=== PATIENT | female | born 1970 | race Caucasian/White ===

== ENCOUNTER 2019-08-03 21:56 | Emergency (ER) | payer SELFPAY ==
[~2019-08-03] VITALS: Ht 167.6 cm; Wt 165.6 kg
[2019-08-03] MEDS ORDERED: TETANUS/DIPHTHERIA TOX ADULT 0.5 ML SYR IM STA (22:14)
[2019-08-03] MEDS ORDERED: LIDOCAINE 1% 5ML-MPF INJ STA (22:14)
--- NOTE | 2019-08-03 22:19 | Emergency Department Note ---
History of Present Illnes History of Present Illness Chief Complaint: Extremity Trauma/Pain History of Present Illness This is a 48 year old female presents to the ED for laceration of the L foot after she struck it against the open end of a pipe. 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 Any updates have been documented here. Past Medical History Recent Fever: No Clinical Suspicion of Infectio: No New/Unexplained Change in Ment: No Past Medical History: None Past Surgical History: None Social History Smoking Cessation: Never Smoker Alcohol Use: None Any Illegal Drug Use: No Review of Systems Review of Systems Constitutional: no symptoms EENTM: no symptoms Cardiovascular: no symptoms Respiratory: no symptoms Gastrointestinal: no symptoms Genitourinary: no symptoms Musculoskeletal: no symptoms Neurological: no symptoms Psychological: no symptoms Endocrine: no symptoms Hematological/Lymphatic: no symptoms Review of other systems All other systems reviewed and negative. Physical Exam Related Data Allergies: Coded Allergies: No Known Allergies (Unverified , 08/03/19) Triage Vital Signs Vital Signs Date Time Temp Pulse Resp B/P (MAP) Pulse Ox O2 Delivery O2 Flow Rate FiO2 08/03/19 22:18 99.3 92 20 182/95 96 Vital signs reviewed: Yes Physical Exam CONSTITUTIONAL Constitutional: well-developed, well-nourished, morbidly obese HENT HENT: normocephalic, atraumatic, oropharynx clear/moist, nose normal HENT L/R: left ext ear normal, right ext ear normal EYES Eyes: PERRL, conjunctivae normal NECK Neck: ROM normal PULMONARY Pulmonary: effort normal, breath sounds normal CARDIOVASCULAR Cardiovascular: regular rhythm, heart sounds normal, capillary refill normal, normal rate GASTROINTESTINAL Abdominal: soft, nontender, bowel sounds normal GENITOURINARY Genitourinary: exam deferred SKIN Skin: other (laceration medial aspect L foot 4 cm in length. b/l edematous foot) MUSCULOSKELETAL Musculoskeletal: ROM normal NEUROLOGICAL Neurological: alert, oriented x 3, no gross motor or sensory deficits PSYCHOLOGICAL Psychological: mood/affect normal, judgement normal Results Imaging Imaging results reviewed: Yes Impressions [place] [address] Patient Name: AUGUSTA CHAVEZ MR #: [id number] : 1970 Age/Sex: 48/F Req #: [id number] Adm Physician: Ordered by: TOMAS ESCOBAR DO Report #: [id number] Location: ER Room/Bed: Procedure: [id number] DX/FOOT LEFT AP & LAT Exam Date: 08/03/19 Exam Time: 2239 REPORT STATUS: Signed Exam: Left foot radiographs-2 views Clinical History: Medial left foot laceration. Comparison: None. Findings/Impression: No evidence of acute fracture or malalignment. Soft tissue edema in the lower leg, ankle and foot. Plantar calcaneal spur. Mild Achilles enthesopathy. Signed by: Dr. Peg Alonso MD on 08/03/2019 11:27 PM Dictated By: PEG ALONSO MD 26 Transcribed By: WILSON on 08/03/192326 COPY TO: TOMAS ESCOBAR DO~ Procedures Laceration Laceration: Laceration 1 Site: lower extremity Side: left Size (cm): 4 Description: flap Local anesthesia: lidocaine 1% Pre-repair: irrigated extensively Skin layer closed with: nylon Size (cm): 4-0 Number of sutures: 6 Technique: simple, interrupted Assessment & Plan Assessment & Plan Final Impression: (1) Laceration of left foot Assessment & Plan Laceration repaired primarily . Tdap given. Rx Keflex. Plan to discharge to home. Depart Disposition: HOME, SELF-CARE Last Vital Signs Date Time Temp Pulse Resp B/P (MAP) Pulse Ox O2 Delivery O2 Flow Rate FiO2 08/03/19 23:25 88 18 126/86 96 08/03/19 22:18 99.3 Medications in the ED Lidocaine HCl 5 mg ONCE STAT INJ Last administered on 08/03/19at 22:20; Admin Dose 5 MG; Start 08/03/19 at 22:14; Stop 08/03/19 at 22:15; Status DC Tetanus/ Diphtheria Toxoids 0.5 ml ONCE STAT IM Last administered on 08/03/19at 23:15; Admin Dose 0.5 ML; Start 08/03/19 at 22:14; Stop 08/03/19 at 22:15; Status DC TOMAS ESCOBAR DO August 03, 2019 22:15
--- NOTE | 2019-08-03 23:31 | Diagnostic Imaging Report ---
Exam: Left foot radiographs-2 views Clinical History: Medial left foot laceration. Comparison: None. Findings/Impression: No evidence of acute fracture or malalignment. Soft tissue edema in the lower leg, ankle and foot. Plantar calcaneal spur. Mild Achilles enthesopathy. Signed by: Dr. Sia Yanes MD on 08/03/2019 11:27 PM
== END 2019-08-03 23:40 | disposition home or self-care (01) ==
LOC: ER 21:56
DX: S91.312A Laceration without foreign body, left foot, initial encounter (principal); W26.8XXA Contact with other sharp object(s), not elsewhere classified, initial encounter
CPT/HCPCS: 90471; 90714

== ENCOUNTER 2022-07-08 16:23 | Emergency (ER) | payer SELFPAY ==
[~2022-07-08] VITALS: Ht 167.6 cm; Wt 165.6 kg
[2022-07-08] MEDS ORDERED: ONDANSETRON HCL INJ 2MG/ML 2ML 2 MG/ML VIAL IV STA (16:48)
[2022-07-08] MEDS ORDERED: Morphine 4mg INJECTION 4 MG/ML INJ IV STA (16:48)
[2022-07-08] MEDS ORDERED: DILTIAZEM HCL 5 MG/ML 5 ML VIAL IV ONE (17:45)
[2022-07-08] MEDS ORDERED: AMIODARONE HCL 150 MG/100 ML BAG IV ONE (18:00)
[2022-07-08] MEDS ORDERED: AMIODARONE 900MG 500 ML IV SCH (18:00)
[2022-07-08] MEDS ORDERED: AMIODARONE 900MG 500 ML IV ONE (18:05)
[2022-07-08 18:09] LABS: BASOPHILS # (AUTO) 0.1 (0.0-0.1); BASOPHILS % 0.5 % (0.0-1.0); EOSINOPHILS # (AUTO) 0.1 (0.0-0.4); EOSINOPHILS % 0.6 % (0.0-6.0); HEMOGLOBIN 12.3 g/dL (12.0-16.0); LYMPHOCYTES # (AUTO) 2.5 (1.0-3.2); LYMPHOCYTES % 24.3 % (18.0-39.1); MEAN CORPUSCULAR HEMOGLOBIN 23.5 pg (28-32); MEAN CORPUSCULAR HGB CONC 30.8 g/dL (31-35); MEAN CORPUSCULAR VOLUME 76.5 fL (81-99); MONOCYTES # (AUTO) 0.6 (0.2-0.8); MONOCYTES % 5.6 % (4.4-11.3); NEUTROPHILS % 68.6 % (38.7-80.0); PLATELET COUNT 258 x10e3/uL (140-360); RED BLOOD COUNT 5.23 x10e6/uL (3.6-5.1); RED CELL DISTRIBUTION WIDTH 17.4 % (11.7-14.4)
[2022-07-08 18:19] LABS: INR 1.37; PARTIAL THROMBOPLASTIN TIME 30.3 seconds (23.8-35.5); PROTHROMBIN TIME 17.4 seconds (11.9-14.5)
[2022-07-08] MEDS ORDERED: ENOXAPARIN SODIUM INJ 100 MG/ML SYR SC ONE (18:21)
[2022-07-08] MEDS ORDERED: ENOXAPARIN SODIUM INJ 100 MG/ML SYR SC STA (18:26)
[2022-07-08 18:29] LABS: ALANINE AMINOTRANSFERASE 30 IU/L (0-55); ALBUMIN 3.8 g/dL (3.5-5.0); ALBUMIN/GLOBULIN RATIO 1.2 (0.8-2.0); ALKALINE PHOSPHATASE 76 IU/L (40-150); ANION GAP 20.4 mmol/L (8-16); BLOOD UREA NITROGEN 19 mg/dL (7-26); BUN/CREATININE RATIO 17 (6-25); CALCIUM 9.3 mg/dL (8.4-10.2); CARBON DIOXIDE 20 mmol/L (22-29); CHLORIDE 105 mmol/L (98-107); CREATINE KINASE 30 IU/L (29-168); GLUCOSE 119 mg/dL (74-118); POTASSIUM 3.4 mmol/L (3.5-5.1); SODIUM 142 mmol/L (136-145)
[2022-07-08] MEDS ORDERED: SODIUM CHLORIDE 0.9% 1000ML 1,000 ML IV ONE ×2 (18:30)
[2022-07-08] MEDS ORDERED: Vancomycin IV 1 GM in SODIUM CHLORIDE 0.9% 250ML 250 ML IV SCH (18:30)
== END 2022-07-08 22:53 | disposition other institution (70) ==
LOC: ER 16:33
DX: R11.2 Nausea with vomiting, unspecified (principal); A41.9 Sepsis, unspecified organism; L03.116 Cellulitis of left lower limb; L03.115 Cellulitis of right lower limb; S81.802A Unspecified open wound, left lower leg, initial encounter; S81.801A Unspecified open wound, right lower leg, initial encounter; I48.20 Chronic atrial fibrillation, unspecified; Z20.822 Contact with and (suspected) exposure to COVID-19
CPT/HCPCS: 0223U; 36415; 71045; 80053; 82550; 82553; 83605; 83880; 84484; 85025; 85610; 85730; 87040; 87071; 87186; 87205; 93005; 99285; J1650; J2270; J2405; J2543; J3370; J7030; J7050

== ENCOUNTER 2024-01-10 09:52 | Inpatient (IN) | payer OTHER ==
[~2024-01-10] VITALS: Ht 167.6 cm; Wt 165.6 kg
[~2024-01-10 09:52] MED LIST: AMIODARONE HCL200 MG PO; ASPIRIN325 MG PO; CEPHALEXIN500 MG PO; CIPRO500 MG PO; CLEOCIN HCL300 MG PO; DIGOXIN125 MCG PO; FUROSEMIDE40 MG PO; LOSARTAN POTASS25 MG PO; METFORMIN HCL500 MG PO; METOPROLOL TAR100 MG PO
[2024-01-10] MEDS: Vancomycin IV 1 GM in SODIUM CHLORIDE 0.9% 250ML 250 ML IV ONE (10:51)
[2024-01-10] MEDS: DILTIAZEM HCL 5 MG/ML 5 ML VIAL IV ONE ×2 (10:52→12:47)
[2024-01-10] MEDS: SODIUM CHLORIDE 0.9% 1000ML 1,000 ML IV SCH ×2 (10:52→13:47)
[2024-01-10] MEDS: Morphine 4mg INJECTION 4 MG/ML INJ IV ONE (11:05)
[2024-01-10 11:14] LABS: BASOPHILS # (AUTO) 0.1 (0.0-0.1); BASOPHILS % 0.7 % (0.0-1.0); EOSINOPHILS # (AUTO) 0.2 (0.0-0.4); EOSINOPHILS % 2.3 % (0.0-6.0); HEMOGLOBIN 11.6 g/dL (12.0-16.0); LYMPHOCYTES # (AUTO) 2.1 (1.0-3.2); LYMPHOCYTES % 28.4 % (18.0-39.1); MEAN CORPUSCULAR HEMOGLOBIN 25.3 pg (28-32); MEAN CORPUSCULAR HGB CONC 30.5 g/dL (31-35); MEAN CORPUSCULAR VOLUME 82.8 fL (81-99); MONOCYTES # (AUTO) 0.4 (0.2-0.8); MONOCYTES % 5.7 % (4.4-11.3); NEUTROPHILS # (AUTO) 4.6 (2.1-6.9); NEUTROPHILS % 62.5 % (38.7-80.0); PLATELET COUNT 209 x10e3/uL (140-360); RED BLOOD COUNT 4.59 x10e6/uL (3.6-5.1); RED CELL DISTRIBUTION WIDTH 15.5 % (11.7-14.4); WHITE BLOOD COUNT 7.37 x10e3/uL (4.8-10.8)
[2024-01-10 11:26] LABS: ALBUMIN 3.5 g/dL (3.5-5.0); ALBUMIN/GLOBULIN RATIO 0.9 (0.8-2.0); BILIRUBIN,TOTAL 0.4 mg/dL (0.2-1.2); CALCIUM 8.8 mg/dL (8.4-10.2); TOTAL PROTEIN 7.3 g/dL (6.5-8.1)
[2024-01-10] MEDS ORDERED: IOPAMIDOL 370 MG/ML 100 ML INFUS..BTL INJ ONE (11:57)
[2024-01-10] MEDS ORDERED: ACETAMINOPHEN 325 MG TAB PO PRN (12:00)
[2024-01-10] MEDS ORDERED: ONDANSETRON HCL INJ 2MG/ML 2ML 2 MG/ML VIAL IV PRN ×2 (12:00)
[2024-01-10] MEDS: AMIODARONE HCL 200 MG TAB PO SCH (13:44)
[2024-01-10] MEDS: DIGOXIN 0.125 MG TAB PO SCH (13:44)
[2024-01-10] MEDS: METOPROLOL TARTRATE INJ 1 MG/ML VIAL IV ONE (13:46)
[2024-01-10 14:51] VITALS: PULSE 137; RESP 22; TEMP 98.6
[2024-01-10 15:22] VITALS: BP 125/90; PULSE 141; RESP 20; TEMP 98.4; O2SAT 100
[2024-01-10 15:30] VITALS: BP 125/90; PULSE 141; RESP 20; TEMP 98.4; O2SAT 100
[2024-01-10] MEDS: Morphine 4mg INJECTION 4 MG/ML INJ IV PRN (15:31)
[2024-01-10] MEDS: METOPROLOL TARTRATE 25 MG TAB PO SCH (16:22)
[2024-01-10] MEDS: CEFEPIME 2 GM in SODIUM CHLORIDE 0.9% 100 ML IV SCH (16:22)
[2024-01-10] MEDS: ENOXAPARIN SOD INJ 40 MG/0.4 ML SYR SC SCH (16:25)
[2024-01-10] MEDS ORDERED: METOPROLOL TARTRATE 50 MG TAB PO SCH (17:00)
[2024-01-10] MEDS: Vancomycin IV 1.5 GM in SODIUM CHLORIDE 0.9% 500ML 500 ML IV ONE (20:40)
[2024-01-10] MEDS: ENOXAPARIN SOD INJ 60 MG/0.6 ML SYR SC ONE (20:41)
[2024-01-10 20:50] VITALS: BP 126/85; PULSE 132; RESP 20; TEMP 98.5; O2SAT 98
[2024-01-10] MEDS ORDERED: VANCOMYCIN 1.5 GM/300 ML (PEG) 300 ML IV SCH (21:00)
[2024-01-10 21:44] VITALS: BP 126/85; PULSE 132; RESP 20; TEMP 98.5; O2SAT 98
[2024-01-10 21:45] VITALS: BP 126/85; PULSE 132; RESP 20; TEMP 98.5; O2SAT 98
[2024-01-11] VITALS (7 sets, daily range): BP systolic 105–138; BP diastolic 60–94; PULSE 66–132; RESP 18–20; TEMP 97.5–99.9; O2SAT 96–100
[2024-01-11] MEDS: METOPROLOL TARTRATE 50 MG TAB PO SCH (08:13)
[2024-01-11] MEDS: ASPIRIN 325 MG TAB PO SCH (08:14)
[2024-01-11] MEDS: FUROSEMIDE 40 MG TAB PO SCH (08:15)
[2024-01-11] MEDS: LOSARTAN POTASSIUM 25 MG TAB PO SCH (08:15)
[2024-01-11] MEDS: ENOXAPARIN SODIUM INJ 100 MG/ML SYR SC SCH (08:15)
[2024-01-11] MEDS: VANCOMYCIN 1.5 GM/300 ML (PEG) 300 ML IV SCH (08:16)
[2024-01-11 08:28] LABS: ANION GAP 11.9 mmol/L (8-16); CALCIUM 8.5 mg/dL (8.4-10.2); CREATININE, SERUM 0.83 mg/dL (0.57-1.11); POTASSIUM 3.9 mmol/L (3.5-5.1)
[2024-01-11 08:31] LABS: BASOPHILS # (AUTO) 0.1 (0.0-0.1); BASOPHILS % 0.6 % (0.0-1.0); EOSINOPHILS # (AUTO) 0.2 (0.0-0.4); EOSINOPHILS % 1.7 % (0.0-6.0); HEMATOCRIT 36.2 % (34.2-44.1); HEMOGLOBIN 10.8 g/dL (12.0-16.0); LYMPHOCYTES # (AUTO) 1.8 (1.0-3.2); LYMPHOCYTES % 20.1 % (18.0-39.1); MEAN CORPUSCULAR HEMOGLOBIN 25.6 pg (28-32); MEAN CORPUSCULAR HGB CONC 29.8 g/dL (31-35); MEAN CORPUSCULAR VOLUME 85.8 fL (81-99); MONOCYTES # (AUTO) 0.4 (0.2-0.8); MONOCYTES % 4.9 % (4.4-11.3); NEUTROPHILS # (AUTO) 6.3 (2.1-6.9); NEUTROPHILS % 72.5 % (38.7-80.0); PLATELET COUNT 183 x10e3/uL (140-360); RED BLOOD COUNT 4.22 x10e6/uL (3.6-5.1); RED CELL DISTRIBUTION WIDTH 16.1 % (11.7-14.4); WHITE BLOOD COUNT 8.69 x10e3/uL (4.8-10.8)
[2024-01-12] VITALS: BP 130/80; PULSE 60; RESP 18; TEMP 98; O2SAT 100
[2024-01-12 00:57] VITALS: BP 130/80; PULSE 60; RESP 18; TEMP 98; O2SAT 100
[2024-01-12 04:00] VITALS: BP 123/74; PULSE 70; RESP 20; TEMP 98.5; O2SAT 100
[2024-01-12 07:29] VITALS: BP 135/74; PULSE 72; RESP 19; TEMP 98.2; O2SAT 100
[2024-01-12 07:57] VITALS: BP 135/74; PULSE 72; RESP 19; TEMP 98.2; O2SAT 100
[2024-01-12 11:03] VITALS: BP 115/59; PULSE 70; RESP 18; TEMP 97.7; O2SAT 100
[2024-01-12] MEDS ORDERED: DIGOXIN125 MCG PO (11:04)
[2024-01-12] MEDS ORDERED: METFORMIN HCL500 MG PO (11:04)
[2024-01-12] MEDS ORDERED: METOPROLOL TART50 MG PO (11:04)
[2024-01-12] MEDS ORDERED: LOSARTAN POTASS25 MG PO (11:04)
[2024-01-12] MEDS ORDERED: FUROSEMIDE40 MG PO (11:04)
[2024-01-12] MEDS ORDERED: ELIQUIS5 MG PO (11:04)
[2024-01-12] MEDS ORDERED: CIPRO250 MG PO (11:06)
[2024-01-12] MEDS ORDERED: AMIODARONE HCL200 MG PO (11:11)
== END 2024-01-12 12:40 | disposition home or self-care (01) | DRG 603 ==
LOC: ER 09:59 → ERHOLD 11:59 → MED/SURG3 15:08
PROVIDERS: ADMIT Internal Medicine; ATTEND Internal Medicine
DX: L03.116 Cellulitis of left lower limb (principal); E66.2 Morbid (severe) obesity with alveolar hypoventilation; Z68.43 Body mass index [BMI] 50.0-59.9, adult; I48.92 Unspecified atrial flutter; I83.228 Varicose veins of left lower extremity with both ulcer of other part of lower extremity and inflammation; R73.03 Prediabetes; I10 Essential (primary) hypertension; B96.5 Pseudomonas (aeruginosa) (mallei) (pseudomallei) as the cause of diseases classified elsewhere; B95.1 Streptococcus, group B, as the cause of diseases classified elsewhere; Z79.82 Long term (current) use of aspirin; Z79.84 Long term (current) use of oral hypoglycemic drugs; Z91.141 Patient's other noncompliance with medication regimen due to financial hardship
CPT/HCPCS: 36415; 80048; 80053; 80202; 83605; 85025; 87040; 87071; 87186; 87205; 93005; 99252; 99284; J0692; J1650; J2270; J2543; J7030; J7040; J7050; Q9967

== ENCOUNTER 2024-06-18 11:41 | Inpatient (IN) | payer OTHER ==
[2024-06-18] VITALS (7 sets, daily range): BP systolic 124–153; BP diastolic 53–68; PULSE 80–87; RESP 18–20; TEMP 98.6–98.9; O2SAT 94–99
[~2024-06-18] VITALS: Ht 167.6 cm; Wt 181.4 kg
[~2024-06-18 11:41] MED LIST changes: +CIPRO250 MG PO; +ELIQUIS5 MG PO; +METOPROLOL TART50 MG PO
[2024-06-18] MEDS: Morphine 4mg INJECTION 4 MG/ML INJ IV ONE (12:48)
[2024-06-18] MEDS: PIPERACILLIN/TAZOBACTAM 4.5 GM in SODIUM CHLORIDE 0.9% 100 ML IV ONE (12:49)
[2024-06-18] MEDS: SODIUM CHLORIDE 0.9% 1000ML 1,000 ML IV SCH (12:54)
[2024-06-18 12:57] LABS: BASOPHILS # (AUTO) 0.1 (0.0-0.1); BASOPHILS % 0.8 % (0.0-1.0); EOSINOPHILS # (AUTO) 0.6 (0.0-0.4); EOSINOPHILS % 6.1 % (0.0-6.0); HEMATOCRIT 35.3 % (34.2-44.1); HEMOGLOBIN 11.3 g/dL (12.0-16.0); LYMPHOCYTES # (AUTO) 2.3 (1.0-3.2); LYMPHOCYTES % 21.8 % (18.0-39.1); MEAN CORPUSCULAR HEMOGLOBIN 26.2 pg (28-32); MEAN CORPUSCULAR VOLUME 81.7 fL (81-99); MONOCYTES # (AUTO) 0.5 (0.2-0.8); NEUTROPHILS # (AUTO) 6.8 (2.1-6.9); NEUTROPHILS % 65.2 % (38.7-80.0); PLATELET COUNT 263 x10e3/uL (140-360); RED BLOOD COUNT 4.32 x10e6/uL (3.6-5.1); RED CELL DISTRIBUTION WIDTH 14.4 % (11.7-14.4); WHITE BLOOD COUNT 10.39 x10e3/uL (4.8-10.8)
[2024-06-18 13:19] LABS: ALBUMIN 3.3 g/dL (3.5-5.0); ALBUMIN/GLOBULIN RATIO 0.9 (0.8-2.0); ANION GAP 14.5 mmol/L (8-16); BILIRUBIN,TOTAL 0.4 mg/dL (0.2-1.2); CALCIUM 8.9 mg/dL (8.4-10.2); CREATININE, SERUM 1.06 mg/dL (0.57-1.11); POTASSIUM 3.5 mmol/L (3.5-5.1)
[2024-06-18] MEDS: Vancomycin IV 1 GM in SODIUM CHLORIDE 0.9% 250ML 250 ML IV ONE (14:06)
[2024-06-18] MEDS ORDERED: ALBUTEROL/IPRATROPIUM 3 ML NEB NEB PRN (14:45)
[2024-06-18] MEDS ORDERED: DIPHENHYDRAMINE HCL 25 MG CAP PO PRN (14:45)
[2024-06-18] MEDS ORDERED: SIMETHICONE 80 MG CHEW PO PRN (14:45)
[2024-06-18] MEDS ORDERED: DEXTROSE 50% SYRINGE 50 ML IV PRN (14:45)
[2024-06-18] MEDS ORDERED: HYDRALAZINE HCL 20 MG/ML VIAL IV PRN (14:45)
[2024-06-18] MEDS ORDERED: IOPAMIDOL 370 MG/ML 100 ML INFUS..BTL INJ ONE (15:00)
[2024-06-18] MEDS: Morphine 4mg INJECTION 4 MG/ML INJ IV PRN (15:14)
[2024-06-18] MEDS: CLINDAMYCIN PHOS 900MG/ 50ML 50 ML IV ONE (16:59)
[2024-06-18] MEDS: HYDROCODONE/APAP 5MG-325MG TAB PO PRN (16:59)
[2024-06-18] MEDS: CEFEPIME 2 GM in SODIUM CHLORIDE 0.9% 100 ML IV SCH (17:00)
[2024-06-18] MEDS: SODIUM CHLORIDE 0.9% 250ML 250 ML ONE (17:01)
[2024-06-18] MEDS ORDERED: ATORVASTATIN CA20 MG PO (17:14)
[2024-06-18] MEDS ORDERED: GABAPENTIN300 MG PO (17:14)
[2024-06-18] MEDS: ENOXAPARIN SOD INJ 40 MG/0.4 ML SYR SC SCH (17:50)
[2024-06-19] VITALS (11 sets, daily range): BP systolic 103–139; BP diastolic 52–73; PULSE 66–121; RESP 18–20; TEMP 98–98.5; O2SAT 96–100
[2024-06-19] MEDS ORDERED: VANCOMYCIN HCL 1.25 GM in SODIUM CHLORIDE 0.9% 250ML 250 ML IV SCH (02:00)
[2024-06-19 05:49] LABS: BASOPHILS # (AUTO) 0.1 (0.0-0.1); BASOPHILS % 0.4 % (0.0-1.0); EOSINOPHILS # (AUTO) 0.5 (0.0-0.4); EOSINOPHILS % 3.6 % (0.0-6.0); HEMOGLOBIN 10.5 g/dL (12.0-16.0); LYMPHOCYTES # (AUTO) 1.7 (1.0-3.2); LYMPHOCYTES % 12.4 % (18.0-39.1); MEAN CORPUSCULAR HGB CONC 31.8 g/dL (31-35); MEAN CORPUSCULAR VOLUME 81.7 fL (81-99); MONOCYTES # (AUTO) 0.5 (0.2-0.8); MONOCYTES % 3.7 % (4.4-11.3); NEUTROPHILS # (AUTO) 10.9 (2.1-6.9); NEUTROPHILS % 79.4 % (38.7-80.0); PLATELET COUNT 261 x10e3/uL (140-360); RED BLOOD COUNT 4.04 x10e6/uL (3.6-5.1); RED CELL DISTRIBUTION WIDTH 14.6 % (11.7-14.4); WHITE BLOOD COUNT 13.67 x10e3/uL (4.8-10.8)
[2024-06-19 06:15] LABS: ANION GAP 15.4 mmol/L (8-16); CALCIUM 8.1 mg/dL (8.4-10.2); CREATININE, SERUM 0.95 mg/dL (0.57-1.11)
[2024-06-19 06:17] LABS: CHOL/HDL RATIO 4.2 (3.0-3.6); MAGNESIUM 1.8 MG/DL (1.3-2.1)
[2024-06-19 06:21] LABS: POTASSIUM 3.4 mmol/L (3.5-5.1)
[2024-06-19] MEDS: DIGOXIN 0.125 MG TAB PO SCH (06:23)
[2024-06-19] MEDS: AMIODARONE HCL 200 MG TAB PO SCH (06:24)
[2024-06-19] MEDS: METOPROLOL TARTRATE 50 MG TAB PO SCH (06:24)
[2024-06-19] MEDS ORDERED: DIGOXIN 0.125 MG TAB PO SCH (06:30)
[2024-06-19] MEDS ORDERED: METOPROLOL TARTRATE 50 MG TAB PO SCH (06:30)
[2024-06-19] MEDS ORDERED: AMIODARONE HCL 200 MG TAB PO SCH (06:30)
[2024-06-19 06:32] LABS: THYROID STIMULATING HORMONE 0.687 uIU/mL (0.350-4.940)
[2024-06-19] MEDS: PANTOPRAZOLE SOD 40 MG TABEC PO SCH (09:59)
[2024-06-19] MEDS: MUPIROCIN 2% OINT 22 GM TUBE TOP SCH (12:09)
[2024-06-19] MEDS: ONDANSETRON HCL INJ 2MG/ML 2ML 2 MG/ML VIAL IV PRN (14:43)
[2024-06-19] MEDS: FUROSEMIDE INJ 10 MG/ML 4 ML VIAL IV SCH (16:30)
[2024-06-19] MEDS: KETOROLAC TROMETHAMINE 30 MG/ML VIAL IV SCH (16:39)
[2024-06-19] MEDS: Vancomycin IV 1.25 GM in SODIUM CHLORIDE 0.9% 250ML 250 ML IV SCH (19:18)
[2024-06-20] VITALS (10 sets, daily range): BP systolic 119–142; BP diastolic 56–73; PULSE 62–77; RESP 16–21; TEMP 97.1–98.6; O2SAT 95–99
[2024-06-20] MEDS: ACETAMINOPHEN 325 MG TAB PO PRN (04:19)
[2024-06-20] MEDS: VANCOMYCIN HCL 1.25 GM in SODIUM CHLORIDE 0.9% 250ML 250 ML IV SCH (05:28)
[2024-06-20 06:19] LABS: BASOPHILS # (AUTO) 0.1 (0.0-0.1); BASOPHILS % 0.6 % (0.0-1.0); EOSINOPHILS # (AUTO) 0.5 (0.0-0.4); EOSINOPHILS % 6.7 % (0.0-6.0); HEMATOCRIT 33.3 % (34.2-44.1); HEMOGLOBIN 10.4 g/dL (12.0-16.0); LYMPHOCYTES # (AUTO) 1.5 (1.0-3.2); MEAN CORPUSCULAR HEMOGLOBIN 25.9 pg (28-32); MEAN CORPUSCULAR HGB CONC 31.2 g/dL (31-35); MEAN CORPUSCULAR VOLUME 82.8 fL (81-99); MONOCYTES # (AUTO) 0.4 (0.2-0.8); NEUTROPHILS # (AUTO) 5.3 (2.1-6.9); NEUTROPHILS % 67.9 % (38.7-80.0); PLATELET COUNT 231 x10e3/uL (140-360); RED BLOOD COUNT 4.02 x10e6/uL (3.6-5.1); RED CELL DISTRIBUTION WIDTH 14.6 % (11.7-14.4); WHITE BLOOD COUNT 7.74 x10e3/uL (4.8-10.8)
[2024-06-20 06:49] LABS: ANION GAP 15.3 mmol/L (8-16); CALCIUM 8.3 mg/dL (8.4-10.2); CREATININE, SERUM 0.9 mg/dL (0.57-1.11)
[2024-06-20 06:54] LABS: POTASSIUM 3.3 mmol/L (3.5-5.1)
[2024-06-20] MEDS: AMIODARONE HCL 200 MG TAB PO SCH (08:56)
[2024-06-20] MEDS: ATORVASTATIN 20 MG TAB PO SCH (08:57)
[2024-06-20] MEDS: MELATONIN 5 MG TABLET PO PRN (22:36)
[2024-06-21] VITALS (9 sets, daily range): BP systolic 103–147; BP diastolic 53–75; PULSE 53–78; RESP 18–20; TEMP 97.7–98.4; O2SAT 95–100
[2024-06-21 05:37] LABS: BASOPHILS # (AUTO) 0.1 (0.0-0.1); BASOPHILS % 0.8 % (0.0-1.0); EOSINOPHILS # (AUTO) 0.5 (0.0-0.4); EOSINOPHILS % 7.5 % (0.0-6.0); HEMATOCRIT 30.4 % (34.2-44.1); HEMOGLOBIN 9.6 g/dL (12.0-16.0); LYMPHOCYTES # (AUTO) 1.5 (1.0-3.2); LYMPHOCYTES % 23.8 % (18.0-39.1); MEAN CORPUSCULAR HEMOGLOBIN 25.9 pg (28-32); MEAN CORPUSCULAR HGB CONC 31.6 g/dL (31-35); MEAN CORPUSCULAR VOLUME 82.2 fL (81-99); MONOCYTES # (AUTO) 0.4 (0.2-0.8); MONOCYTES % 5.9 % (4.4-11.3); NEUTROPHILS # (AUTO) 3.8 (2.1-6.9); NEUTROPHILS % 61.4 % (38.7-80.0); PLATELET COUNT 219 x10e3/uL (140-360); RED CELL DISTRIBUTION WIDTH 14.6 % (11.7-14.4); WHITE BLOOD COUNT 6.23 x10e3/uL (4.8-10.8)
[2024-06-21 06:06] LABS: ANION GAP 14.2 mmol/L (8-16); CALCIUM 8.5 mg/dL (8.4-10.2); CREATININE, SERUM 0.82 mg/dL (0.57-1.11)
[2024-06-21 06:07] LABS: POTASSIUM 3.2 mmol/L (3.5-5.1)
[2024-06-21] MEDS: POTASSIUM CHLORIDE 20 MEQ TAB CR PO PRN (10:14)
[2024-06-21] MEDS: NYSTATIN 15 GM POWDER UD BTL TOP PRN (10:28)
[2024-06-21] MEDS: APIXABAN 5 MG TABLET PO SCH (17:20)
[2024-06-22] VITALS (10 sets, daily range): BP systolic 120–143; BP diastolic 56–77; PULSE 54–76; RESP 18–20; TEMP 97.9–98.3; O2SAT 96–100
[2024-06-22] MEDS: VANCOMYCIN HCL 1.25 GM in SODIUM CHLORIDE 0.9% 250ML 250 ML IV SCH (05:26)
[2024-06-23] VITALS (12 sets, daily range): BP systolic 112–155; BP diastolic 57–86; PULSE 53–72; RESP 17–20; TEMP 97.7–98.2; O2SAT 97–100
[2024-06-23] MEDS: DOCUSATE SODIUM 100 MG CAP PO PRN (10:37)
[2024-06-24] VITALS (10 sets, daily range): BP systolic 121–153; BP diastolic 55–80; PULSE 48–67; RESP 18–20; TEMP 97.7–98.3; O2SAT 96–100
[2024-06-24] MEDS: ALTEPLASE RECOMBINANT 2 MG/2 ML VIAL IV PRN (04:08)
[2024-06-25] VITALS (11 sets, daily range): BP systolic 108–145; BP diastolic 49–67; PULSE 56–65; RESP 16–20; TEMP 97.7–98.6; O2SAT 97–100
[2024-06-25] MEDS: BENZONATATE 100 MG CAP PO PRN (00:54)
[2024-06-25] MEDS: METOPROLOL TARTRATE 25 MG TAB PO SCH (16:04)
[2024-06-25] MEDS: Morphine 4mg INJECTION 4 MG/ML INJ IV PRN (16:52)
[2024-06-26] VITALS (9 sets, daily range): BP systolic 118–157; BP diastolic 65–78; PULSE 60–72; RESP 18–20; TEMP 97.7–98.1; O2SAT 96–99
[2024-06-26] MEDS: HYDROMORPHONE 1MG/1ML INJ IV PRN (16:26)
[2024-06-27] VITALS (8 sets, daily range): BP systolic 106–161; BP diastolic 56–88; PULSE 60–73; RESP 18–20; TEMP 97.6–98.1; O2SAT 97–100
[2024-06-27] MEDS: HYDROCODONE/APAP 10MG-325MG TAB PO PRN (13:44)
== END 2024-06-27 18:30 | disposition home health service (06) | DRG 603 ==
LOC: ER 11:44 → ERHOLD 14:31 → MED/SURG3 15:30
PROVIDERS: ADMIT Internal Medicine; ATTEND Internal Medicine
PROC: 02HV33Z Insertion of Infusion Device into Superior Vena Cava, Percutaneous Approach (ICD-10-PCS; principal; 2024-06-19)
PROC: B548ZZA Ultrasonography of Superior Vena Cava, Guidance (ICD-10-PCS; 2024-06-19)
DX: L03.116 Cellulitis of left lower limb (principal); Z68.44 Body mass index [BMI] 60.0-69.9, adult; L97.829 Non-pressure chronic ulcer of other part of left lower leg with unspecified severity; L97.819 Non-pressure chronic ulcer of other part of right lower leg with unspecified severity; I96 Gangrene, not elsewhere classified; I50.32 Chronic diastolic (congestive) heart failure; I89.0 Lymphedema, not elsewhere classified; E66.01 Morbid (severe) obesity due to excess calories; I87.2 Venous insufficiency (chronic) (peripheral); I11.0 Hypertensive heart disease with heart failure; I50.812 Chronic right heart failure; I48.0 Paroxysmal atrial fibrillation; Z79.01 Long term (current) use of anticoagulants; K21.9 Gastro-esophageal reflux disease without esophagitis; E78.5 Hyperlipidemia, unspecified; Z71.3 Dietary counseling and surveillance; Z71.82 Exercise counseling; Z79.899 Other long term (current) drug therapy
CPT/HCPCS: 36415; 36569; 71045; 73701; 80048; 80053; 80061; 80202; 82948; 83036; 83605; 83735; 84443; 85025; 87040; 93306; 93970; 94799; 99252; 99284; J0692; J1171; J1650; J1885; J1938; J2270; J2405; J2470; J2543; J2997; J7030; J7050; Q9967

== ENCOUNTER 2024-09-25 16:53 | Inpatient (IN) | payer OTHER ==
[~2024-09-25] VITALS: Ht 167.6 cm; Wt 158.3 kg
[~2024-09-25 16:53] MED LIST changes: +ATORVASTATIN CA20 MG PO; +GABAPENTIN300 MG PO
[2024-09-25 21:26] LABS: BASOPHILS % 0.4 % (0.0-1.0); EOSINOPHILS % 0.8 % (0.0-6.0); LYMPHOCYTES % 21.0 % (18.0-39.1); MONOCYTES % 3.9 % (4.4-11.3); NEUTROPHILS % 73.5 % (38.7-80.0); RED CELL DISTRIBUTION WIDTH 15.4 % (11.7-14.4)
[2024-09-25] MEDS: ONDANSETRON HCL INJ 2MG/ML 2ML 2 MG/ML VIAL IV STA (21:26)
[2024-09-25] MEDS: HYDROMORPHONE 1MG/1ML INJ IV STA (21:27)
[2024-09-25 21:46] LABS: EST GLOMERULAR FILTRATION RATE 66.0 ML/MIN (>=60)
[2024-09-25] MEDS ORDERED: SODIUM CHLORIDE FLUSH 10 ML SYR INJ PRN (22:15)
[2024-09-25] MEDS: Vancomycin IV 1.25 GM in SODIUM CHLORIDE 0.9% 250ML 250 ML IV SCH (22:52)
[2024-09-25 23:06] VITALS: PULSE 75; RESP 18; O2SAT 97
[2024-09-25 23:39] VITALS: PULSE 68; RESP 20; TEMP 98.4
[2024-09-26] VITALS (12 sets, daily range): BP systolic 110–133; BP diastolic 58–86; PULSE 60–89; RESP 16–20; TEMP 97.8–98.6; O2SAT 98–100
[2024-09-26] MEDS ORDERED: LOPRESSOR25 MG PO (02:35)
[2024-09-26] MEDS ORDERED: BUPRENORPHINE1 EAC3 TD (02:35)
[2024-09-26] MEDS ORDERED: OXYCODONE-ACET1 EAC3 PO (02:35)
[2024-09-26] MEDS ORDERED: ELIQUIS5 MG PO (02:35)
[2024-09-26] MEDS: HYDROMORPHONE 1MG/1ML INJ IV PRN (07:28)
[2024-09-26 07:42] LABS: BASOPHILS % 0.4 % (0.0-1.0); EOSINOPHILS % 0.9 % (0.0-6.0); LYMPHOCYTES % 20.8 % (18.0-39.1); MONOCYTES % 5.8 % (4.4-11.3); NEUTROPHILS % 71.7 % (38.7-80.0); RED CELL DISTRIBUTION WIDTH 15.5 % (11.7-14.4)
[2024-09-26 08:13] LABS: EST GLOMERULAR FILTRATION RATE 80.0 ML/MIN (>=60)
[2024-09-26] MEDS: VANCOMYCIN 1.25GM/250 ML (PEG) 250 ML IV SCH (10:15)
[2024-09-26] MEDS ORDERED: TYLENOL EXTRA500 MG PO (10:21)
[2024-09-26] MEDS ORDERED: IBUPROFEN800 MG PO (10:21)
[2024-09-26] MEDS: ONDANSETRON HCL INJ 2MG/ML 2ML 2 MG/ML VIAL IV PRN (13:05)
[2024-09-26] MEDS: AMIODARONE HCL 200 MG TAB PO SCH (15:34)
[2024-09-26] MEDS: GABAPENTIN 300 MG CAP PO SCH (15:34)
[2024-09-26] MEDS: METOPROLOL TARTRATE INJ 1 MG/ML VIAL IV ONE (15:36)
[2024-09-26] MEDS: APIXABAN 5 MG TABLET PO SCH (17:24)
[2024-09-26] MEDS: METOPROLOL TARTRATE 25 MG TAB PO SCH (17:25)
[2024-09-27 03:24] VITALS: BP 127/63; PULSE 64; RESP 20; TEMP 98.5; O2SAT 99
[2024-09-27] MEDS: CEFTRIAXONE 2 GM in SODIUM CHLORIDE 0.9% 100 ML IV SCH (07:44)
[2024-09-27] MEDS: ATORVASTATIN 20 MG TAB PO SCH (07:44)
[2024-09-27 09:20] VITALS: BP 129/59; PULSE 56; RESP 20; TEMP 98.1; O2SAT 99
[2024-09-27] MEDS: ACETAMINOPHEN 325 MG TAB PO PRN (09:49)
[2024-09-27] MEDS: LOSARTAN POTASSIUM 25 MG TAB PO SCH (09:50)
[2024-09-27] MEDS: FUROSEMIDE 40 MG TAB PO SCH (09:57)
[2024-09-27 10:01] VITALS: BP 129/59; PULSE 60; RESP 20; TEMP 98.1; O2SAT 99
[2024-09-27] MEDS ORDERED: OXYCODONE HCL 10 MG TAB CR PO PRN (12:45)
[2024-09-27] MEDS: OXYCODONE HCL IR 5 MG TAB PO PRN (13:30)
[2024-09-27 14:18] VITALS: BP 130/78; PULSE 61; RESP 20; TEMP 98.1; O2SAT 100
[2024-09-27] MEDS: HYDROMORPHONE 1MG/1ML INJ IV PRN (14:48)
[2024-09-27 19:38] VITALS: BP 107/71; PULSE 55; RESP 18; TEMP 97.4; O2SAT 99
[2024-09-27 23:24] VITALS: BP 116/74; PULSE 58; RESP 18; TEMP 97.6; O2SAT 98
[2024-09-28 03:24] VITALS: BP 114/71; PULSE 55; RESP 18; TEMP 97.4; O2SAT 100
[2024-09-28 08:24] VITALS: BP 128/79; PULSE 56; RESP 20; TEMP 97.7; O2SAT 96
[2024-09-28] MEDS: METOPROLOL TARTRATE INJ 1 MG/ML VIAL IV PRN (09:33)
[2024-09-28 10:01] VITALS: BP 128/79; PULSE 160; RESP 20; TEMP 97.7; O2SAT 96
[2024-09-28 14:09] VITALS: BP 133/82; PULSE 74; RESP 20; TEMP 97.9; O2SAT 98
[2024-09-28 16:59] VITALS: BP 111/72; PULSE 62; RESP 20; TEMP 98.1; O2SAT 100
[2024-09-28] MEDS: LORAZEPAM 0.5 MG TAB PO PRN (17:31)
[2024-09-28 20:00] VITALS: BP 109/73; PULSE 58; RESP 17; TEMP 98.1; O2SAT 100
[2024-09-29] VITALS (9 sets, daily range): BP systolic 80–150; BP diastolic 50–75; PULSE 54–79; RESP 17–18; TEMP 97.6–98.5; O2SAT 96–100
[2024-09-29] MEDS: SODIUM CHLORIDE 0.9% 1000ML 1,000 ML IV ONE (21:03)
[2024-09-29] MEDS: MIDODRINE 2.5 MG TAB PO SCH (23:40)
[2024-09-30] VITALS (7 sets, daily range): BP systolic 99–136; BP diastolic 51–74; PULSE 51–64; RESP 17–18; TEMP 97.7–98.6; O2SAT 93–100
[2024-09-30] MEDS: FUROSEMIDE INJ 10 MG/ML 4 ML VIAL IV ONE (15:08)
[2024-09-30] MEDS: SILVER ANTIMICROBIAL WOUND GEL 45ML TP SCH (16:23)
[2024-09-30] MEDS ORDERED: MIDODRINE 2.5 MG TAB PO SCH (23:00)
[2024-10-01] VITALS (8 sets, daily range): BP systolic 111–130; BP diastolic 54–81; PULSE 51–100; RESP 18–20; TEMP 97.8–98.6; O2SAT 98–100
[2024-10-01 06:15] LABS: BASOPHILS % 0.6 % (0.0-1.0); EOSINOPHILS % 3.0 % (0.0-6.0); LYMPHOCYTES % 30.1 % (18.0-39.1); MONOCYTES % 6.4 % (4.4-11.3); NEUTROPHILS % 59.6 % (38.7-80.0); RED CELL DISTRIBUTION WIDTH 15.9 % (11.7-14.4)
[2024-10-01 06:42] LABS: EST GLOMERULAR FILTRATION RATE 39.0 ML/MIN (>=60)
[2024-10-01] MEDS: FUROSEMIDE INJ 10 MG/ML 4 ML VIAL IV SCH (09:06)
[2024-10-02] VITALS (9 sets, daily range): BP systolic 115–162; BP diastolic 66–75; PULSE 50–65; RESP 18–20; TEMP 97.6–98.5; O2SAT 98–100
[2024-10-02] MEDS: SODIUM CHLORIDE 0.9% 250ML 250 ML ONE (08:42)
[2024-10-03 08:00] VITALS: BP 141/67; PULSE 57; RESP 20; TEMP 97.7; O2SAT 99
[2024-10-03 09:00] VITALS: BP 141/67; PULSE 57; RESP 20; TEMP 97.7; O2SAT 99
[2024-10-03 12:00] VITALS: BP 128/70; PULSE 62; RESP 20; TEMP 98.1; O2SAT 99
[2024-10-03 16:00] VITALS: BP 134/65; PULSE 52; RESP 17; TEMP 98.5; O2SAT 99
[2024-10-03 16:56] LABS: EST GLOMERULAR FILTRATION RATE 91.0 ML/MIN (>=60)
[2024-10-03] MEDS: POTASSIUM CHLORIDE 20 MEQ TAB CR PO STA (18:56)
[2024-10-04] MEDS ORDERED: METOPROLOL SUCCINATE 25 MG TAB XL PO SCH (09:00)
== END 2024-10-03 20:35 | disposition home or self-care (01) | DRG 872 ==
LOC: ER 20:58 → ERHOLD 22:04 → MED/SURG3 23:37
PROVIDERS: ADMIT Internal Medicine; ATTEND Internal Medicine
DX: A41.9 Sepsis, unspecified organism (principal); L03.116 Cellulitis of left lower limb; I48.20 Chronic atrial fibrillation, unspecified; I50.30 Unspecified diastolic (congestive) heart failure; L03.115 Cellulitis of right lower limb; Z68.43 Body mass index [BMI] 50.0-59.9, adult; L97.812 Non-pressure chronic ulcer of other part of right lower leg with fat layer exposed; L97.822 Non-pressure chronic ulcer of other part of left lower leg with fat layer exposed; I11.0 Hypertensive heart disease with heart failure; E66.01 Morbid (severe) obesity due to excess calories; I83.028 Varicose veins of left lower extremity with ulcer other part of lower leg; I89.0 Lymphedema, not elsewhere classified; I87.2 Venous insufficiency (chronic) (peripheral); G62.9 Polyneuropathy, unspecified; L08.89 Other specified local infections of the skin and subcutaneous tissue; G47.33 Obstructive sleep apnea (adult) (pediatric); I48.0 Paroxysmal atrial fibrillation; G89.4 Chronic pain syndrome; E78.00 Pure hypercholesterolemia, unspecified; R01.1 Cardiac murmur, unspecified; Z79.891 Long term (current) use of opiate analgesic; Z91.199 Patient's noncompliance with other medical treatment and regimen due to unspecified reason; Z79.84 Long term (current) use of oral hypoglycemic drugs; Z88.5 Allergy status to narcotic agent; Z79.01 Long term (current) use of anticoagulants
CPT/HCPCS: 36415; 36569; 71045; 80048; 80053; 82948; 85014; 85018; 85025; 87040; 87071; 87205; 94799; 99252; 99284; J0696; J1171; J1938; J2405; J2543; J3373; J7030; J7050